=== PATIENT | female | born 1935 | race Caucasian/White ===

== ENCOUNTER 2017-03-17 07:21 | Inpatient (IN) | payer MEDICARE, BC ==
[~2017-03-17] VITALS: Ht 160 cm; Wt 66.4 kg
[2017-03-17] VITALS (11 sets, daily range): BP systolic 100–120; BP diastolic 52–73; PULSE 69–100; TEMP 97.5–98.7
[~2017-03-17 07:21] MED LIST: ADVIL 200MG TA200 MG PO; ASPIRIN E.C.325 MG PO; ATENOLOL25 MG PO; BIOTIN1 MG PO; CALCIUM CARBON500 M1 PO; LIPITOR20 MG PO; MVI; TYLENOL 325MG325 MG PO; VITAMIN C1 TAB PO
[2017-03-17 07:55] LABS: HEMATOCRIT 42.4 % (37.0-47.0); HEMOGLOBIN 13.8 g/dl (12.5-16.0); MEAN CELL VOLUME 90 fl (80.0-100.0); MEAN CORPUSCULAR HEMOGLOBIN 29 pg (27.0-31.0); MEAN CORPUSCULAR HGB CONC 33 g/dl (33.0-37.0); MEAN PLATELET VOLUME 9.3 fl (7.4-10.4); PLATELET COUNT 227 K/mm3 (130-400); RED BLOOD COUNT 4.72 M/mm3 (4.10-5.30); REDCELL DISTRIBUTION WIDTH-CV 12.9 % (11.5-14.5); WHITE BLOOD COUNT 6.6 K/mm3 (4.8-10.8)
[2017-03-17 07:58] LABS: INR 1.2 (0.8-3.0); PROTHROMBIN TIME 13.3 SECONDS (9.7-12.8)
[2017-03-17 08:06] LABS: CALCIUM 9.3 mg/dL (8.4-10.2); CREATININE, serum 0.8 mg/dL (0.52-1.25); MAGNESIUM 1.9 mg/dL (1.6-2.3); POTASSIUM 3.9 mmol/L (3.4-5.0)
[2017-03-17] MEDS ORDERED: TENORMIN 5050 MG/TAB PO (08:13)
[2017-03-17] MEDS ORDERED: ASPIRIN E.C. 8181 MG PO (08:13)
[2017-03-17] MEDS ORDERED: MULTI VITAMINS1 TAB PO (08:16)
[2017-03-17] MEDS ORDERED: VITAMIN D1000 IU PO (08:18)
[2017-03-17] MEDS ORDERED: TAMBOCOR150 MG PO (08:19)
[2017-03-17] MEDS ORDERED: ELIQUIS 5MG PO (08:20)
[2017-03-17] MEDS ORDERED: OMEGA-3 FISH1000 MG PO (08:20)
[2017-03-17] MEDS ORDERED: CALTRATE-600 W600 MG PO (08:22)
[2017-03-17] MEDS ORDERED: GLUCOSAMINE SU500 M2 PO (08:23)
[2017-03-17 14:43] LABS: ADJUSTED CALCIUM 9.1 mg/dL (8.4-10.2); ALBUMIN 4.3 gm/dL (3.5-5.0); BILIRUBIN,TOTAL 0.8 mg/dL (0.0-1.0); TOTAL PROTEIN 7.3 gm/dL (6.4-8.2)
[2017-03-18 03:45] VITALS: BP 103/50; PULSE 73; TEMP 9854
[2017-03-18 08:12] LABS: HEMATOCRIT 40.8 % (37.0-47.0); HEMOGLOBIN 13.1 g/dl (12.5-16.0); MEAN CELL VOLUME 91 fl (80.0-100.0); MEAN CORPUSCULAR HEMOGLOBIN 29 pg (27.0-31.0); MEAN CORPUSCULAR HGB CONC 32 g/dl (33.0-37.0); MEAN PLATELET VOLUME 9.4 fl (7.4-10.4); PLATELET COUNT 209 K/mm3 (130-400); REDCELL DISTRIBUTION WIDTH-CV 12.8 % (11.5-14.5); WHITE BLOOD COUNT 5.3 K/mm3 (4.8-10.8)
[2017-03-18 08:23] LABS: CALCIUM 9.1 mg/dL (8.4-10.2); CREATININE, serum 0.72 mg/dL (0.52-1.25); POTASSIUM 4.2 mmol/L (3.4-5.0)
[2017-03-18 08:52] VITALS: BP 114/51; PULSE 72; TEMP 98.3
[2017-03-18 12:35] VITALS: BP 114/60; PULSE 75; TEMP 98.2
[2017-03-18 16:44] VITALS: BP 141/63; PULSE 75; TEMP 98.3
[2017-03-18 19:39] VITALS: BP 96/54; PULSE 70; TEMP 97.9
[2017-03-18 23:18] VITALS: BP 110/50; PULSE 79; TEMP 97.2
[2017-03-19 03:29] VITALS: BP 103/53; PULSE 73; TEMP 98.4
[2017-03-19 07:25] VITALS: BP 125/62; PULSE 72; TEMP 97.5
[2017-03-19 08:18] LABS: HEMATOCRIT 39.9 % (37.0-47.0); HEMOGLOBIN 12.8 g/dl (12.5-16.0); MEAN CELL VOLUME 90 fl (80.0-100.0); MEAN CORPUSCULAR HEMOGLOBIN 29 pg (27.0-31.0); MEAN CORPUSCULAR HGB CONC 32 g/dl (33.0-37.0); MEAN PLATELET VOLUME 9.9 fl (7.4-10.4); PLATELET COUNT 208 K/mm3 (130-400); RED BLOOD COUNT 4.43 M/mm3 (4.10-5.30); REDCELL DISTRIBUTION WIDTH-CV 12.7 % (11.5-14.5); WHITE BLOOD COUNT 4.9 K/mm3 (4.8-10.8)
[2017-03-19 08:37] LABS: CREATININE, serum 0.65 mg/dL (0.52-1.25); POTASSIUM 4.2 mmol/L (3.4-5.0)
[2017-03-19] MEDS ORDERED: BETAPACE 120MG120 MG PO (10:25)
[2017-03-19] MEDS ORDERED: XARELTO20 MG PO (10:36)
== END 2017-03-19 10:51 | disposition home or self-care (01) | DRG 310 ==
LOC: COL.CAR 07:21 → MEDICAL 14:20 → COL.CAR 14:20 → MEDICAL 14:27 → COL.CAR 03-19 10:51 → MEDICAL 03-19 10:51
PROVIDERS: Internal Medicine Cardiovascular Disease
PROC: 5A2204Z Restoration of Cardiac Rhythm, Single (ICD-10-PCS; principal; 2017-03-17)
DX: I48.0 Paroxysmal atrial fibrillation (principal); I48.92 Unspecified atrial flutter; I10 Essential (primary) hypertension; Z79.01 Long term (current) use of anticoagulants; Z87.891 Personal history of nicotine dependence; Z95.0 Presence of cardiac pacemaker
CPT/HCPCS: OP; G9654; J2704

== ENCOUNTER → 2017-09-04 | Outpatient (CLI) | payer MEDICARE, BC ==
[~2017-09-04] MED LIST changes: +ASPIRIN E.C. 8181 MG PO; +BETAPACE 120MG120 MG PO; +CALTRATE-600 W600 MG PO; +ELIQUIS 5MG PO; +GLUCOSAMINE SU500 M2 PO; +MULTI VITAMINS1 TAB PO; +OMEGA-3 FISH1000 MG PO; +TAMBOCOR150 MG PO; +TENORMIN 5050 MG/TAB PO; +VITAMIN D1000 IU PO; +XARELTO20 MG PO
== END ==
LOC: MC.RAD 07:57
DX: Z12.31 Encounter for screening mammogram for malignant neoplasm of breast (principal)

== ENCOUNTER → 2018-11-02 | Outpatient (CLI) | payer MEDICARE, BC | LOC: MC.RAD 11:30 | DX: Z12.31 Encounter for screening mammogram for malignant neoplasm of breast (principal) ==

== ENCOUNTER → 2019-11-18 | Outpatient (CLI) | payer MEDICARE, BC ==
[~2019-11-18] MED LIST changes: +METOPROLOL TART75 MG PO
== END ==
LOC: MC.RAD 08:31
DX: Z12.31 Encounter for screening mammogram for malignant neoplasm of breast (principal)

== ENCOUNTER → 2020-11-21 | Outpatient (CLI) | payer MEDICARE, BC | LOC: MC.RAD 10:00 | DX: Z12.31 Encounter for screening mammogram for malignant neoplasm of breast (principal) ==

== ENCOUNTER 2021-07-12 12:57 | Outpatient (CLI) | payer MEDICARE, BC ==
[~2021-07-12] VITALS: Ht 160 cm; Wt 65.9 kg
[~2021-07-12 12:57] MED LIST changes: +ATROVENT NASAL15 ML NS; +TIKOSYN0.25 MG PO; +TOPROL XL 25MG25 MG PO; +VITAMIN D31000 I1 PO
[2021-07-12 14:22] VITALS: BP 143/71; PULSE 77; TEMP 99
[2021-07-12 14:47] VITALS: BP 128/57; PULSE 82
== END 2021-07-12 15:48 ==
LOC: EUO 12:57
DX: U07.1 COVID-19 (principal)
CPT/HCPCS: M0243; Q0244

== ENCOUNTER → 2022-01-01 | Outpatient (CLI) | payer MEDICARE, BC | LOC: MC.RAD 10:12 | DX: Z12.31 Encounter for screening mammogram for malignant neoplasm of breast (principal) ==